=== PATIENT | male | born 2000 | race Caucasian/White ===

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

== ENCOUNTER → 2025-06-29 | Outpatient (CLI) | payer BC | END | disposition home or self-care (01) | LOC: MRI 12:46 | PROVIDERS: ATTEND Orthopaedic Surgery | DX: S83.212A Bucket-handle tear of medial meniscus, current injury, left knee, initial encounter (principal); S83.512A Sprain of anterior cruciate ligament of left knee, initial encounter; X58.XXXA Exposure to other specified factors, initial encounter; Y93.89 Activity, other specified; Y92.89 Other specified places as the place of occurrence of the external cause; Y99.8 Other external cause status ==

== ENCOUNTER → 2025-07-14 | Day surgery (SDC) | payer BC ==
[~2025-07-14] VITALS: Ht 177.8 cm; Wt 72.5 kg
[~2025-07-14] MED LIST: ACETAMINOPHEN 100 ML IV ONE; Bupivacaine Hydrochloride/Ep2 30 ML VIAL ONE; Dexamethasone Sodium Phospha 4 MG/ML VIAL IV ONE; HYDROCODONE-AC1 EAC1 PO; Ketamine Hydrochloride 500 MG/5 ML VIAL IV ONE; LIDOCAINE HCL/EPINEPHRINE 50 ML VIAL ONE; Lactated Ringer's Solution 1,000 ML IV ONE; Lidocaine Hydrochloride 2% 5 ML SDV IM ONE; Midazolam Hydrochloride 2 MG/2 ML VIAL IV ONE; Ondansetron Hydrochloride 4 MG/2 ML VIAL IV ONE; PROPOFOL 200 MG/20 ML VIAL IV ONE; Ropivacaine Hydrochloride 5 MG/ML 20 ML AMP IJ ONE; SEVOFLURANE 250 ML BOT INH ONE; SODIUM CHLORIDE 0.9% 100 ML IV ONE; ceFAZolin sodium/sodium chlor 20 ML IV ONE
[2025-07-14 07:09] VITALS: BP 108/76
[2025-07-14 09:59] VITALS: BP 138/66
[2025-07-14 10:14] VITALS: BP 134/70
[2025-07-14 10:29] VITALS: BP 123/71
[2025-07-14 10:44] VITALS: BP 103/64
== END | disposition home or self-care (01) ==
LOC: SDC 07-10 12:30
PROVIDERS: ATTEND Orthopaedic Surgery
DX: S83.212A Bucket-handle tear of medial meniscus, current injury, left knee, initial encounter (principal); S83.512A Sprain of anterior cruciate ligament of left knee, initial encounter; F17.200 Nicotine dependence, unspecified, uncomplicated; X58.XXXA Exposure to other specified factors, initial encounter; Y93.89 Activity, other specified; Y92.89 Other specified places as the place of occurrence of the external cause; Y99.8 Other external cause status

== ENCOUNTER → 2025-10-12 | Outpatient (CLI) | payer BC ==
[~2025-10-12] MED LIST changes: -ACETAMINOPHEN 100 ML IV ONE; -Bupivacaine Hydrochloride/Ep2 30 ML VIAL ONE; -Dexamethasone Sodium Phospha 4 MG/ML VIAL IV ONE; -Ketamine Hydrochloride 500 MG/5 ML VIAL IV ONE; -LIDOCAINE HCL/EPINEPHRINE 50 ML VIAL ONE; -Lactated Ringer's Solution 1,000 ML IV ONE; -Lidocaine Hydrochloride 2% 5 ML SDV IM ONE; -Midazolam Hydrochloride 2 MG/2 ML VIAL IV ONE; -Ondansetron Hydrochloride 4 MG/2 ML VIAL IV ONE; -PROPOFOL 200 MG/20 ML VIAL IV ONE; -Ropivacaine Hydrochloride 5 MG/ML 20 ML AMP IJ ONE; -SEVOFLURANE 250 ML BOT INH ONE; -SODIUM CHLORIDE 0.9% 100 ML IV ONE; -ceFAZolin sodium/sodium chlor 20 ML IV ONE
== END | disposition home or self-care (01) ==
LOC: MRI 14:16
PROVIDERS: ATTEND Orthopaedic Surgery
DX: S83.212A Bucket-handle tear of medial meniscus, current injury, left knee, initial encounter (principal); S83.512A Sprain of anterior cruciate ligament of left knee, initial encounter; M25.462 Effusion, left knee; X58.XXXA Exposure to other specified factors, initial encounter; Y93.89 Activity, other specified; Y92.89 Other specified places as the place of occurrence of the external cause; Y99.8 Other external cause status